=== PATIENT | female | born 1940 | race Caucasian/White ===

== ENCOUNTER 2024-10-13 17:18 | Inpatient (IN) | payer MEDICARE, BC ==
[~2024-10-13] VITALS: Ht 162.6 cm; Wt 61.2 kg
[2024-10-13 18:15] LABS: BASOPHILS % (AUTO) 0.2 % (0.0-2.0); EOSINOPHILS # (AUTO) 0.1 K/uL (0.0-0.7); EOSINOPHILS % (AUTO) 1.5 % (0.0-6.0); HEMATOCRIT 41 % (33-45); LYMPHOCYTES # (AUTO) 1.2 K/uL (0.8-4.8); LYMPHOCYTES % (AUTO) 12.5 % (20.0-44.0); MEAN CORPUSCULAR HEMOGLOBIN 33 PG (26.0-33.0); MEAN CORPUSCULAR HGB CONC 34 g/dl (31.0-36.0); MEAN CORPUSCULAR VOLUME 96 fL (82-100); MONOCYTES # (AUTO) 0.8 K/uL (0.1-1.30); MONOCYTES % (AUTO) 7.9 % (2.0-12.0); NEUTROPHILS # (AUTO) 7.6 K/uL (1.8-8.9); NEUTROPHILS % (AUTO) 77.9 % (43.0-81.0); PLATELET COUNT (AUTO) 249 K/uL (150-450); RED BLOOD CELL COUNT(AUTO) 4.25 MIL/uL (4.0-5.2); RED CELL DISTRIBUTION WIDTH 14.5 % (11.5-15.0); WHITE BLOOD COUNT (AUTO) 9.7 K/uL (4.3-11.0)
[2024-10-13] MEDS ORDERED: NITR100C6 PO (18:16)
[2024-10-13] MEDS ORDERED: ATOR80TA PO (18:16)
[2024-10-13] MEDS ORDERED: LUMA42CA PO (18:16)
[2024-10-13] MEDS ORDERED: LAMO25TA5 PO (18:16)
[2024-10-13] MEDS ORDERED: PANT20TA2 PO (18:16)
[2024-10-13] MEDS ORDERED: PREG25CA PO (18:16)
[2024-10-13] MEDS ORDERED: DESV100T PO (18:16)
[2024-10-13 18:28] LABS: CALCIUM, SERUM 9.4 mg/dL (8.5-10.1); CARBON DIOXIDE 27 mmol/L (21-32); CHLORIDE 101 mmol/L (98-107); GLUCOSE 100 mg/dL (74-106); POTASSIUM 3.7 mmol/L (3.5-5.1); SODIUM SERUM 138 mmol/L (136-145); UREA NITROGEN, BLOOD 6 mg/dL (7-18)
[2024-10-13 18:35] LABS: ALANINE AMINOTRANSFERASE 40 U/L (12-78); ALBUMIN 4.3 g/dL (3.4-5.0); ALCOHOL, BLOOD < 3 mg/dL (0-10); ALKALINE PHOSPHATASE 85 U/L (46-116); ASPARTATE AMINOTRANSFERASE 23 U/L (15-37); BILIRUBIN,DIRECT 0.2 mg/dL (0.0-0.2); BILIRUBIN,TOTAL 0.7 mg/dL (0.2-1.0); TOTAL PROTEIN, SERUM 7.8 g/dL (6.4-8.2)
[2024-10-13 18:38] LABS: APPEARANCE,URINE CLEAR (CLEAR); BILIRUBIN,URINE NEGATIVE (NEGATIVE); BLOOD, URINE NEGATIVE Ery/uL (NEGATIVE); COLOR,URINE YELLOW (YELLOW); KETONES,URINE 1+ mg/dL (NEGATIVE); LEUKOCYTE ESTERASE ,URINE 1+ (NEGATIVE); NITRITE, URINE NEGATIVE (NEGATIVE); PH,URINE 6.5 (5.0-8.0); PROTEIN,URINE TRACE mg/dl (NEGATIVE); UGLUCOSE NEGATIVE (NEGATIVE); UROBILINOGEN,URINE 0.2 EU/dL (0.2)
[2024-10-13 18:44] LABS: ADD URINE CULTURE YES; BACTERIA,URINE 1+ /HPF (None Seen); RBC,URINE 0-2 /HPF (0-2)
[2024-10-13 18:56] LABS: ACETAMINOPHEN <10 ug/ml (10-30); SALICYLATE 0.6 mg/dL (2.8-20.0)
[2024-10-13 19:31] LABS: AMPHETAMINE, URINE NEGATIVE (NEGATIVE); BARBITURATE, URINE NEGATIVE (NEGATIVE); BENZODIAZEPINE, URINE NEGATIVE (NEGATIVE); CANNABINOID, URINE NEGATIVE (NEGATIVE); COCCAINE, URINE NEGATIVE (NEGATIVE); OPIATE, URINE NEGATIVE (NEGATIVE); PHENCYCLIDINE SCREEN,URINE NEGATIVE (NEGATIVE)
[2024-10-13] MEDS ORDERED: IBUPROFEN 600 MG TABLET ONE (20:11)
[2024-10-13] MEDS: IBUPROFEN 600 MG TABLET PO ONE (20:17)
[2024-10-13] MEDS: PANTOPRAZOLE 40 MG TABLET.DR PO SCH (23:41)
[2024-10-13] MEDS: PREGABALIN 25 MG CAPSULE PO SCH (23:41)
[2024-10-13] MEDS: NITROFURANTOIN/MONOHYDRATE MACROCRYSTALS 100 MG CAPSULE PO SCH (23:41)
[2024-10-13] MEDS: ATORVASTATIN 40 MG TABLET PO SCH (23:45)
[2024-10-14] MEDS ORDERED: MAGNESIUM HYDROXIDE 30 ML UDC PO PRN
[2024-10-14] MEDS ORDERED: TEMAZEPAM 7.5 MG CAPSULE PO PRN ×2
[2024-10-14] MEDS ORDERED: MAG HYDROX/AL HYDROX/SIMETH 30 ML UDC PO PRN
[2024-10-14] MEDS ORDERED: clonazePAM 0.5 MG TABLET PO PRN ×2
[2024-10-14] MEDS ORDERED: SIME125T3 PO (00:09)
[2024-10-14] MEDS ORDERED: GUAI120013 PO (00:09)
[2024-10-14] MEDS ORDERED: CETI-90 PO (00:11)
[2024-10-14] MEDS ORDERED: LATA2.5D15 EACHEYE (00:11)
[2024-10-14] MEDS ORDERED: IPRA42SP NS (00:13)
[2024-10-14] MEDS ORDERED: FLUT16SP16 BNOSTRILS (00:13)
[2024-10-14] MEDS: BLOOD SUGAR DIAGNOSTIC 1 EACH STRIP IN ONE (00:37)
[2024-10-14 00:41] VITALS: BP 129/79; TEMP 98; O2SAT 98
[2024-10-14 08:00] VITALS: BP 153/91; TEMP 97.8; O2SAT 98
[2024-10-14] MEDS ORDERED: Medication Not On Formulary EA (Desvenlafaxine Succinate (Pristiq) 100 MG) PO SCH (09:00)
[2024-10-14] MEDS: ACETAMINOPHEN 325 MG TABLET PO PRN (13:52)
[2024-10-14 16:00] VITALS: BP 152/63; TEMP 97.8; O2SAT 96
[2024-10-14] MEDS: ASPIRIN/ACETAMINOPHEN/CAFFEINE 1 EACH TABLET PO PRN (19:48)
[2024-10-14 20:39] VITALS: BP 158/98; TEMP 97.9; O2SAT 98
[2024-10-14] MEDS: diphenhydrAMINE HCL ELIX 25 MG/10 ML UDC PO PRN (21:15)
[2024-10-14] MEDS ORDERED: MIRTAZAPINE 15 MG TABLET PO SCH (22:00)
[2024-10-15 08:00] VITALS: BP 142/85; TEMP 97.9; O2SAT 98
[2024-10-15] MEDS: LUMATEPERONE PO SCH (08:57)
[2024-10-15] MEDS: LamoTRIgine 25 MG TABLET PO SCH (08:57)
[2024-10-15] MEDS: DESVENLAFAXINE 100 MG PO SCH (09:13)
[2024-10-15 12:23] LABS: CALCIUM, SERUM 9.4 mg/dL (8.5-10.1); CREATININE 0.8 mg/dL (0.6-1.3); POTASSIUM 3.7 mmol/L (3.5-5.1)
[2024-10-15 14:32] LABS: BASOPHILS % (AUTO) 0.5 % (0.0-2.0); EOSINOPHILS # (AUTO) 0.2 K/uL (0.0-0.7); EOSINOPHILS % (AUTO) 3.8 % (0.0-6.0); HEMATOCRIT 38 % (33-45); HEMOGLOBIN 13.2 g/dL (11.5-14.8); LYMPHOCYTES # (AUTO) 0.8 K/uL (0.8-4.8); LYMPHOCYTES % (AUTO) 12.2 % (20.0-44.0); MEAN CORPUSCULAR HEMOGLOBIN 33 PG (26.0-33.0); MEAN CORPUSCULAR HGB CONC 34 g/dl (31.0-36.0); MEAN CORPUSCULAR VOLUME 95 fL (82-100); MONOCYTES # (AUTO) 0.5 K/uL (0.1-1.30); MONOCYTES % (AUTO) 7.9 % (2.0-12.0); NEUTROPHILS # (AUTO) 4.7 K/uL (1.8-8.9); NEUTROPHILS % (AUTO) 75.6 % (43.0-81.0); PLATELET COUNT (AUTO) 227 K/uL (150-450); RED BLOOD CELL COUNT(AUTO) 4.03 MIL/uL (4.0-5.2); RED CELL DISTRIBUTION WIDTH 14.2 % (11.5-15.0); WHITE BLOOD COUNT (AUTO) 6.3 K/uL (4.3-11.0)
[2024-10-15 16:00] VITALS: BP 137/53; TEMP 97.8; O2SAT 98
[2024-10-15 20:28] VITALS: BP 136/99; TEMP 98; O2SAT 97
[2024-10-16 08:00] VITALS: BP 138/83; TEMP 98; O2SAT 97
== END 2024-10-16 14:45 | disposition home or self-care (01) | DRG 881 ==
LOC: ER 17:18 → GPS 22:52
PROVIDERS: ADMIT Psychiatry & Neurology Psychiatry; ATTEND Nurse Practitioner Acute Care
DX: F32.9 Major depressive disorder, single episode, unspecified (principal); G93.41 Metabolic encephalopathy; N39.0 Urinary tract infection, site not specified; F29 Unspecified psychosis not due to a substance or known physiological condition; G47.00 Insomnia, unspecified; F41.9 Anxiety disorder, unspecified; E78.5 Hyperlipidemia, unspecified; I10 Essential (primary) hypertension; K21.9 Gastro-esophageal reflux disease without esophagitis; Z20.822 Contact with and (suspected) exposure to COVID-19; Z73.6 Limitation of activities due to disability; B96.89 Other specified bacterial agents as the cause of diseases classified elsewhere
CPT/HCPCS: 36415; 80048-TC; 80061-TC; 80076-TC; 81001; 85025-TC; 87081-TC; 87086-TC; 92526; 92611-TC; 97112-TC; 97116-TC; 97530-TC; G0480; Q0163